=== PATIENT | male | born 2000 | race African-American/Black ===

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

== ENCOUNTER 2023-11-12 07:42 | Emergency (ER) | payer OTHER ==
[~2023-11-12] VITALS: Ht 185.4 cm; Wt 115.8 kg
[2023-11-12 07:43] VITALS: BP 132/77; TEMP 96.3; O2SAT 98
== END 2023-11-12 10:48 | disposition home or self-care (01) ==
LOC: M ED 07:42
DX: S93.402A Sprain of unspecified ligament of left ankle, initial encounter (principal); X50.1XXA Overexertion from prolonged static or awkward postures, initial encounter; Y92.9 Unspecified place or not applicable; Y93.89 Activity, other specified; Y99.9 Unspecified external cause status; Z87.81 Personal history of (healed) traumatic fracture; F17.200 Nicotine dependence, unspecified, uncomplicated